=== PATIENT | female | born 1960 | race Caucasian/White ===

== ENCOUNTER → 2021-02-26 | Outpatient (CLI) | payer SELFPAY | PROVIDERS: Referring Provider Internal Medicine; Visit Provider Internal Medicine | DX: Z23 Encounter for immunization (principal) | CPT/HCPCS: 90471; 90686 ==

== ENCOUNTER → 2021-03-20 11:24 | Outpatient (CLI) | payer OTHER, SELFPAY ==
[2021-03-20] MEDS: COVID-19 VACC #3, MRNA(MOD) 50 MCG/0.25 ML VIAL IM (11:30)
== END ==
PROVIDERS: Visit Provider Internal Medicine
DX: Z23 Encounter for immunization (principal)
CPT/HCPCS: 0013A; 91301

== ENCOUNTER → 2021-05-06 08:59 | Outpatient (CLI) | payer OTHER, SELFPAY ==
[2021-05-06 11:15] LABS: COVID19 -Nasal RAPID Negative (Negative)
== END ==
PROVIDERS: Visit Provider Nurse Practitioner Family
DX: Z20.822 Contact with and (suspected) exposure to COVID-19 (principal); J02.9 Acute pharyngitis, unspecified
CPT/HCPCS: 87635

== ENCOUNTER 2021-08-30 06:47 | Emergency (ER) | payer OTHER, SELFPAY ==
[2021-08-30 07:04] VITALS: BP 145/64; PULSE 68; RESP 17; TEMP 36.6; O2SAT 99; BMI 33.3
--- NOTE | 2021-08-30 07:21 | ED.BACK ---
HPI - Back Pain/Injury General Chief Complaint: Back Pain/Injury Stated Complaint: back pain Time Seen by Provider: 08/30/21 07:21 Source: patient Limitations: no limitations History of Present Illness HPI Narrative: This is a 61-year-old female history of depression, vertebral depression fractures without for surgery who presents with mid back pain. Patient states on Tuesday, 2 days ago she was bending over picking up heavy file box when she felt something pop in her back. She states it was not as significantly painful as when she developed her compression fractures in the past but has continued to be persistent and painful. She has been taking ibuprofen and Robaxin which has been helpful. Her symptoms have not resolved. She denies radiation of pain down her legs, no paresthesias, no loss of bowel or bladder control or saddle anesthesia, no weakness. She states she felt wobbly immediately after the incident but has had a normal gait since then. Patient states lying flat is a list painful position for her. She has to lay down slightly upright. Movement does worsen it. She denies fevers, skin changes. No chest pain, shortness of breath or other GI or urinary symptoms. She denies medical problems other than anxiety and depression. She states she has never had surgery or interventions on her back. She denies other surgical history as well. Patient does request prescription for refill for Robaxin she states she only has 2 tablets left. Related Data Previous Rx's Medication Instructions Recorded methocarbamol 500 mg tablet 500 mg PO QID PRN #15 tab 08/30/21 Review of Systems Review of Systems ROS Unobtainable: All systems reviewed & are unremarkable except as noted in HPI and below Patient History Social History Smoking Status: Never smoker Smoking Status: Never smoker alcohol intake frequency: a few times a month Substance Use Type: does not use Exam Narrative Exam Narrative: GENERAL: Alert and oriented x three, female in moderate distress. HEENT: Head normocephalic, atraumatic, EOMI, pupils reactive, face symmetric, moist mucous membranes NECK: Supple, full range of motion CARDIOVASCULAR: Regular rate and rhythm without murmurs, rubs or gallops. RESPIRATORY: Breath sounds equal bilaterally, no wheezes rales or rhonchi. ABDOMEN: Soft, nontender. Normoactive bowel sounds all 4 quadrants. No guarding or rebound, rigidity, no mass : No CVA tenderness BACK: No cervical, thoracic or lumbar vertebral point tenderness. Patient has tightness the soft tissue at the he 8 through L1 region bilaterally but greater on the left in comparison to rate. Has decreased range of motion, patient is able to sit up and sit on the edge of the bed unassisted but appears quite uncomfortable and moves slowly. Patient's gait is normal. Rectal exam is deferred. Muscle strength is 5/5 in lower extremities, DTRs are 2/4 and lower extremities. Dorsalis pedis and tibialis pulses are 2+ and lower extremities. Sensation is intact in the lower extremities. EXTREMITIES: Normal range of motion, no clubbing or edema. Neurovascularly intact NEUROLOGICAL: Cranial nerves II through XII grossly intact. Moving all extremities SKIN: Warm, dry, no petechiae, no rashes or lesions. Initial Vital Signs Initial Vital Signs: Vital Signs Temperature 97.8 F 08/30/21 07:04 Pulse Rate 68 08/30/21 07:04 Respiratory Rate 17 08/30/21 07:04 Blood Pressure 145/64 H 08/30/21 07:04 Pulse Oximetry 99 08/30/21 07:04 Course Orders Ordered: ED Orders 08/30/21 07:38 XR thoracic spine 2V Stat Vital Signs Vital signs: Vital Signs - 8 hr 08/30/21 07:04 Temperature 97.8 F Pulse Rate 68 Respiratory Rate 17 Blood Pressure 145/64 H Pulse Oximetry 99 MDM - Back Pain/Injury Imaging Data thoracic spine xray: Radiologist's Impression: Launch?[address] [address] XRay Report Signed Patient: Kaylene Lopez MR#: [id number] : 1960 Acct:[id number] Age/Sex: 61 / F Date of Service: 08/30/21 Loc: ED Accession Number: [id number] ?? Procedure: XR thoracic spine 2V Ordering Provider: Alla Leblanc D.O. PROCEDURE:? XR THORACIC SPINE 2V ? INDICATIONS:? T9/12 back pain/L1 back pain, hx compression fx. ? TECHNIQUE:? 2 views of the thoracic spine were acquired.? ? COMPARISON:? None. ? FINDINGS:? ? Bones:? Anterior wedge deformities can be seen involving T9 and T10, with 40% loss of height at T9 and 20% loss height at T10.? No definite, claude acute features are detected. ? 12 pairs of ribs are seen and appear intact where visualized.? Mild dextroconvex scoliotic curvature is seen. No suspicious lytic or blastic lesions are seen.? ? Soft tissues:? No paravertebral stripe thickening.? ? ? IMPRESSION:? T9 and T10 anterior wedge deformities without claude, acute features. ? If it would be helpful for clinical management decision making in this patient with this given history, please consider a dedicated thoracic spine CT or MRI depending upon clinical suspicion (assuming that there is no contraindication).? ? ? Dictated by: Gary Saenz M.D. on 08/30/2021 at 7:04 ? ? Approved by: Gary Saenz M.D. on 08/30/2021 at 7:07?? MDM Narrative Medical decision making narrative: This is a 61-year-old female who had acute on chronic worsening of her low back pain after bending over and heavy lifting with no compression fractures in the past. On examination her pain in area of injury is in the lower thoracic region. I do not have her prior imaging available but based on her persistent symptoms for several days appropriate for further imaging. Patient does not have any acute neurologic changes necessitating MRI today. T-spine x-ray confirms T9-T10 compression fractures which patient was aware of. Do not appear to have any acute changes at this time. She has been controlling her pain at home with ibuprofen and Robaxin. But is about to run out of a box and. Prescription was provided here. Defers anything for pain here in the department. Discussed return precautions all questions answered. Discharge Plan Departure Patient Disposition: Home Clinical Impression: Strain of lumbar region, Closed wedge compression fracture of T9 vertebra, Closed wedge compression fracture of T10 vertebra Instructions: DI for Back Strain or Sprain Activity Restrictions/Additional Instructions: Follow-up with your physician for recheck if your symptoms persist. Your imaging today shows T9 and T10 compression fractures but do not appear to have new changes but I do not have imaging for comparison. You may continue taking up to 600 mg every 6 hours ibuprofen and/or Tylenol to a 1000 mg every 6 hours as needed for pain management. You may take Robaxin 1 tablet every 6 hours as needed for muscle relaxation. Prescription sent to [email or web address] in [place] Please return here or the closest emergency department for rapidly worsening symptoms, loss of bowel or bladder control, new weakness, numbness or loss of sensation, elevate to lift and move her leg or other new or concerning symptoms. Prescriptions: New methocarbamol 500 mg tablet 500 mg PO QID PRN (Reason: muscle spasm) Qty: 15 0RF Stand Alone Forms: Work Release Note
--- NOTE | 2021-08-30 07:38 | DI.RAD.S_ITS ---
PROCEDURE: XR THORACIC SPINE 2V INDICATIONS: T9/12 back pain/L1 back pain, hx compression fx. TECHNIQUE: 2 views of the thoracic spine were acquired. COMPARISON: None. FINDINGS: Bones: Anterior wedge deformities can be seen involving T9 and T10, with 40% loss of height at T9 and 20% loss height at T10. No definite, claude acute features are detected. 12 pairs of ribs are seen and appear intact where visualized. Mild dextroconvex scoliotic curvature is seen. No suspicious lytic or blastic lesions are seen. Soft tissues: No paravertebral stripe thickening. IMPRESSION: T9 and T10 anterior wedge deformities without claude, acute features. If it would be helpful for clinical management decision making in this patient with this given history, please consider a dedicated thoracic spine CT or MRI depending upon clinical suspicion (assuming that there is no contraindication). Dictated by: Gary Saenz M.D. on 08/30/2021 at 7:04 Approved by: Gary Saenz M.D. on 08/30/2021 at 7:07
[2021-08-30 08:23] VITALS: BP 145/64; PULSE 79; RESP 18; O2SAT 96
== END 2021-08-30 08:28 | disposition home or self-care (01) ==
PROVIDERS: Emergency Provider Emergency Medicine
DX: S22.070A Wedge compression fracture of T9-T10 vertebra, initial encounter for closed fracture (principal); S39.012A Strain of muscle, fascia and tendon of lower back, initial encounter; X50.0XXA Overexertion from strenuous movement or load, initial encounter
CPT/HCPCS: 72070; 99283